=== PATIENT | female | born 1935 | race American Indian/Alaskan Native ===

== ENCOUNTER 2016-12-05 12:30 | Outpatient (CLI) | payer MEDICARE ==
--- NOTE | 2016-12-05 13:41 | XRay Report ---
ROUTINE CHEST, TWO VIEWS: HISTORY: Dyspnea. The trachea, heart, mediastinal contour, lung chew and bony thorax are unremarkable. Surgical changes in the left axilla and lateral right breast are noted. IMPRESSION: No acute cardiopulmonary process.
== END 2016-12-05 12:31 | disposition home or self-care (01) ==
LOC: XRAY 12:30
PROVIDERS: ATTEND Internal Medicine
DX: R06.00 Dyspnea, unspecified (principal)
CPT/HCPCS: 71020

== ENCOUNTER 2017-05-23 13:01 | Outpatient (CLI) | payer MEDICARE ==
--- NOTE | 2017-05-26 09:58 | XRay Report ---
PA and lateral chest: Pleural pain. Bilateral surgical clips are identified over the chest consistent with mastectomies. The aorta is tortuous. The heart is normal in size. The lungs are clear except for a small nodule in the right midlung. No vascular congestion. No bone abnormality. The findings appear essentially unchanged compared to prior exam on December 05, 2016. Impressions: 1. No acute cardiopulmonary findings. 2. Bilateral mastectomies.
== END 2017-05-23 13:02 | disposition home or self-care (01) ==
LOC: SPVIMAG 13:01
PROVIDERS: ATTEND Internal Medicine Hematology & Oncology
DX: R91.8 Other nonspecific abnormal finding of lung field (principal); R07.81 Pleurodynia; C50.411 Malignant neoplasm of upper-outer quadrant of right female breast; C50.412 Malignant neoplasm of upper-outer quadrant of left female breast; Z90.13 Acquired absence of bilateral breasts and nipples
CPT/HCPCS: 71020

== ENCOUNTER 2017-09-29 10:46 | Inpatient (IN) | payer MEDICARE ==
--- NOTE | 2017-09-29 14:21 | History and Physical Report ---
History of Present Illness Date of examination: 09/29/17 Chief complaint: Frequent falls History of present illness: 82-year-old -[place] female with past medical history significant for breast cancer status post mastectomy, hypertension, CHF, anxiety, COPD, recurrent pneumonia, ulcer is a direct admit is a direct admit from Dr. Soto' s office for suspected pyelonephritis. Patient stated she had recurrent falls for the last 2 weeks, her legs gave up and fall, no dizziness or palpitation before fall. Patient said she had abdominal and flank pain, dysuria, frequency and urgency but denied fever, chills. Patient said she had history of congestive heart failure and is complaining dyspnea, orthopnea, PND and leg swelling. She is also complaining dry cough. Patient has history of long- standing arthritis. REVIEW OF SYSTEMS: GENERAL: no weight change, no fatigue, no fever HEAD: no head ache EYES: no blurry vision, no acute visual loss EARS: no hearing loss, no discharge, no earache NOSE: no stuffiness, no sneezing, no discharge MOUTH, THROAT AND NECK: no bleeding gums, no sore throat, no swollen neck CARDIAC: + palpitations, + dyspnea on exertion, + orthopnea, + PND, + edema, no chest pain RESPIRATORY: + shortness of breath, no wheeze, + cough, no sputum, no hemoptysis GI: no decreased appetite, no nausea, no vomiting, no dysphagia, no diarrhea, no constipation, no abdominal pain URINARY: + change in frequency, + urgency, no polyuria, no hematuria, + incontinence MUSCULOSKELETAL: no muscle weakness, no pain, no joint stiffness NEUROLOGIC: no loss of sensation/numbness, no tingling, no tremors, no weakness/ paralysis HEMATOLOGIC: no anemia, no easy bruising SKIN: no rashes ENDOCRINE: no heat/cold intolerance, no polyuria, no polydipsia, no thyroid problems, no diabetes PSYCHIATRIC: no anxiety, no depression, no suicidal ideations Past History Past Medical History: cancer, COPD, heart failure, hypertension, hyperlipidemia Past Surgical History: mastectomy Social history: AND/DNR-allow natural . denies: smoking, alcohol abuse, prescription drug abuse, IV drug use, full code Family history: no significant family history Medications and Allergies Allergies Allergy/AdvReac Type Severity Reaction Status Date / Time No Known Allergies Allergy Unverified 06/29/15 10:20 Home Medications Medication Instructions Recorded Confirmed Last Taken Type ALPRAZolam [Xanax TAB] 0.5 mg PO TID PRN 07/12/15 09/29/17 07/19/15 04:30 History traMADol [Ultram] 50 mg PO Q8HR PRN 07/12/15 09/29/17 07/18/15 04:00 History Amlodipine Besylate [Norvasc] 10 mg PO DAILY 09/29/17 09/29/17 09/29/17 08:00 History Anastrozole (Nf) 1 mg PO DAILY 09/29/17 09/29/17 09/29/17 08:00 History Cholecalciferol (Vitamin D3) 50,000 units PO QWEEK 09/29/17 09/29/17 Unknown History HYDROcodone/APAP 5-325 [[place] 1 each PO Q8H PRN 09/29/17 09/29/17 09/29/17 08: 00 History 5/325] Lisinopril [Zestril] 20 mg PO DAILY 09/29/17 09/29/17 09/29/17 08:00 History Meloxicam [Mobic] 15 mg PO HS 09/29/17 09/29/17 09/28/17 21:00 History Omeprazole 20 mg PO DAILY 09/29/17 09/29/17 09/29/17 08:00 History 20 mg Torsemide [Demadex] 10 mg PO QDAY 09/29/17 09/29/17 09/29/17 08:00 History clonazePAM [ Klonopin] 1 mg PO Q8H PRN 09/29/17 09/29/17 Unknown History hydrALAZINE 50 mg PO DAILY 09/29/17 09/29/17 09/29/17 08:00 History Active Meds: Active Medications Heparin Sodium (Porcine) (Heparin) 5,000 unit SUB-Q Q8HR MYCHAL Exam - Physical Exam Narrative exam: Not in cardiopulmonary distress. The patient appeared well nourished and normally developed. Vital signs as documented. Head exam is unremarkable. No scleral icterus . Neck is without jugular venous distension, thyromegaly, or carotid bruits. Lungs are clear to auscultation. Cardiac exam reveals regular rate and Rhythm. First and second heart sounds normal. No murmurs, rubs or gallops. Abdominal exam reveals normal bowel sounds, no masses, no organomegaly and no aortic enlargement. Extremities are nonedematous and both femoral and pedal pulses are normal. SAND ANALYST: Alert and oriented 3. No focal weakness. Assessment and Plan Assessment and plan: Possible pyelonephritis - We will going to do U/A, urine culture, blood culture and CT abdomen and pelvis - Patient started on IV ceftriaxone Congestive heart failure, unspecified pending echo - Resume her home CHF medications - We will do echo, consult [facility] Hypertension - Resume medications Frequent falls - PT/OT Anxiety - We'll restart her home dose of alprazolam COPD - On Advair, DuoNeb and oxygen support History of breast cancer DVT prophylaxis - On heparin Disposition - Admit to MedSur floor. Advance Directives: Yes (DNR/ DNI) VTE prophylaxis?: Chemical Plan of care discussed with patient/family: Yes
[2017-09-29 17:11] LABS: Basophils % (Auto) 1.2 % (0.0-1.8); Eosinophils % (Auto) 2.5 % (0.0-4.3); Hematocrit 35.5 % (30.3-42.9); Hemoglobin 11.8 gm/dl (10.1-14.3); Mean Corpuscular HGB Conc 33 % (30-34); Mean Corpuscular Hemoglobin 30 pg (28-32); Mean Corpuscular Volume 91 fl (79-97); Platelet Count 182 K/mm3 (140-440); Red Blood Count 3.92 M/mm3 (3.65-5.03); Red Cell Distribution Width 15.9 % (13.2-15.2); White Blood Count 4.9 K/mm3 (4.5-11.0)
[2017-09-29 17:27] LABS: BUN/Creatinine Ratio 16; Blood Urea Nitrogen 13 mg/dL (7-17); Calcium 8.9 mg/dL (8.4-10.2); Carbon Dioxide 30 mmol/L (22-30); Glucose 93 mg/dL (65-100)
[2017-09-29 17:28] LABS: Anion Gap 18 mmol/L; Chloride 100.6 mmol/L (98-107); Potassium 3.4 mmol/L (3.6-5.0); Sodium 145 mmol/L (137-145)
[2017-09-29] MEDS: NORCO 5/325 PO PRN (17:29)
[2017-09-29] MEDS: XANAX PO PRN (17:29)
[2017-09-29 17:38] LABS: INR 0.99 (0.87-1.13)
[2017-09-29] MEDS: ROCEPHIN/NS 1 GM/50 ML 1 GM/50 ML BAG IV SCH (17:45)
[2017-09-29] MEDS: DUONEB *Not for PRN Use IH SCH (20:13)
[2017-09-29 20:20] LABS: Bilirubin,Urine NEG (Negative); Blood,Urine NEG (Negative); Ketones,Urine NEG (Negative); Leukocyte Esterase,Urine TR (Negative); Nitrite,Urine NEG (Negative); Protein,Urine <15 mg/dL mg/dL (Negative); Urobilinogen,Urine < 2.0 mg/dL (<2.0)
[2017-09-29] MEDS: ULTRAM PO PRN (22:41)
[2017-09-29] MEDS: GUAIFENESIN DM SYRUP PO PRN (22:42)
[2017-09-29] MEDS: HEPARIN SUB-Q SCH (22:42)
[2017-09-30] MEDS: XANAX PO PRN (03:51)
[2017-09-30] MEDS: NORCO 5/325 PO PRN ×2 (03:51→11:44)
[2017-09-30 05:10] LABS: Basophils % (Auto) 0.9 % (0.0-1.8); Eosinophils % (Auto) 3.1 % (0.0-4.3); Hematocrit 34.9 % (30.3-42.9); Hemoglobin 11.3 gm/dl (10.1-14.3); Mean Corpuscular HGB Conc 32 % (30-34); Mean Corpuscular Hemoglobin 30 pg (28-32); Mean Corpuscular Volume 92 fl (79-97); Platelet Count 166 K/mm3 (140-440); Red Blood Count 3.81 M/mm3 (3.65-5.03); Red Cell Distribution Width 15.9 % (13.2-15.2); White Blood Count 5.1 K/mm3 (4.5-11.0)
[2017-09-30 05:22] LABS: INR 1.01 (0.87-1.13)
[2017-09-30 05:30] LABS: Anion Gap 16 mmol/L; BUN/Creatinine Ratio 20; Blood Urea Nitrogen 14 mg/dL (7-17); Calcium 8.6 mg/dL (8.4-10.2); Carbon Dioxide 28 mmol/L (22-30); Chloride 103.8 mmol/L (98-107); Glucose 97 mg/dL (65-100); Potassium 3.3 mmol/L (3.6-5.0); Sodium 144 mmol/L (137-145)
[2017-09-30] MEDS: HEPARIN SUB-Q SCH ×3 (06:44→22:36)
--- NOTE | 2017-09-30 08:05 | XRay Report ---
Chest 2 views. History: Cough. Findings: The heart is borderline in size with normal pulmonary vascularity. There is uncoiling of the thoracic aorta. A granuloma in the right midlung zone is stable. The lungs are free of acute infiltrates. No pleural fluid is seen. Multiple surgical clips overlie the thorax. Impression: No acute findings.
--- NOTE | 2017-09-30 08:44 | Cat Scan Report ---
CT of the abdomen and pelvis without contrast. History: Abdominal pain. Findings: A calcified granuloma is noted in the left lower lobe. Minimal discoid atelectasis is seen in the left lower lobe. The liver, spleen, and gallbladder are unremarkable except for a few splenic granulomas. The pancreas is atrophic but otherwise unremarkable. The kidneys are normal in size and configuration with no evidence of mass or hydronephrosis. No renal stones are seen. Small lymph nodes are seen in the periaortic region. There are no pelvic masses or abnormal fluid collections. No mesenteric inflammation is seen. There is no radiographic evidence of appendicitis. Impression: No significant findings.
[2017-09-30] MEDS ORDERED: K-DUR PO NR (09:00)
[2017-09-30] MEDS: DUONEB *Not for PRN Use IH SCH ×4 (09:54→20:34)
[2017-09-30] MEDS ORDERED: DEMADEX PO SCH (10:00)
[2017-09-30] MEDS ORDERED: NON-FORMULARY (Hydralazine 50 MG) PO SCH (10:00)
[2017-09-30] MEDS ORDERED: NON-FORMULARY (Anastrozole (Nf) 1 MG) PO SCH (10:00)
[2017-09-30] MEDS ORDERED: NON-FORMULARY (Omeprazole [Omeprazole] 20 MG) PO SCH (10:00)
[2017-09-30] MEDS: ZESTRIL PO SCH (10:11)
[2017-09-30] MEDS: PROTONIX PO SCH (10:11)
[2017-09-30] MEDS: ROCEPHIN/NS 1 GM/50 ML 1 GM/50 ML BAG IV SCH (10:11)
[2017-09-30] MEDS: NORVASC PO SCH (10:12)
[2017-09-30] MEDS: APRESOLINE PO SCH (10:13)
[2017-09-30] MEDS: GUAIFENESIN DM SYRUP PO PRN (10:17)
--- NOTE | 2017-09-30 11:47 | Consultation ---
History of Present Illness Consult date: 09/30/17 Consult reason: congestive heart failure History of present illness: This is an 82yr old woman who was admitted from the outpatient setting for suspected pyelonephritis. A cardiac consultation was requested for CHF evaluation. Patient complains of intermittent coughs. There is no reports of shortness of breath. A chest x-ray reports no acute cardiopulmonary process. In addition, patient reports generalized weakness and dizziness resulting in frequent falls over the last few days. Patient denies loss of consciousness. She denies chest pain. Past History Past Medical History: cancer, COPD, heart failure, hypertension, hyperlipidemia Past Surgical History: mastectomy Social history: AND/DNR-allow natural . denies: smoking, alcohol abuse, prescription drug abuse, IV drug use, full code Family history: no significant family history Medications and Allergies Allergies Allergy/AdvReac Type Severity Reaction Status Date / Time No Known Allergies Allergy Unverified 06/29/15 10:20 Home Medications Medication Instructions Recorded Confirmed Last Taken Type ALPRAZolam [Xanax TAB] 0.5 mg PO TID PRN 07/12/15 09/29/17 07/19/15 04:30 History traMADol [Ultram] 50 mg PO Q8HR PRN 07/12/15 09/29/17 07/18/15 04:00 History Amlodipine Besylate [Norvasc] 10 mg PO DAILY 09/29/17 09/29/17 09/29/17 08:00 History Anastrozole (Nf) 1 mg PO DAILY 09/29/17 09/29/17 09/29/17 08:00 History Cholecalciferol (Vitamin D3) 50,000 units PO QWEEK 09/29/17 09/29/17 Unknown History HYDROcodone/APAP 5-325 [[place] 1 each PO Q8H PRN 09/29/17 09/29/17 09/29/17 08: 00 History 5/325] Lisinopril [Zestril] 20 mg PO DAILY 09/29/17 09/29/17 09/29/17 08:00 History Meloxicam [Mobic] 15 mg PO HS 09/29/17 09/29/17 09/28/17 21:00 History Omeprazole 20 mg PO DAILY 09/29/17 09/29/17 09/29/17 08:00 History 20 mg Torsemide [Demadex] 10 mg PO QDAY 09/29/17 09/29/17 09/29/17 08:00 History clonazePAM [ Klonopin] 1 mg PO Q8H PRN 09/29/17 09/29/17 Unknown History hydrALAZINE 50 mg PO DAILY 09/29/17 09/29/17 09/29/17 08:00 History Active Meds: Active Medications Acetaminophen/Hydrocodone Bitart ([place] 5/325) 1 each PO Q8H PRN PRN Reason: Pain Last Admin: 09/30/17 03:51 Dose: 1 each Albuterol/Ipratropium (Duoneb *Not For Prn Use*) 1 ampul IH QIDRT [facility] Last Admin: 09/30/17 09:54 Dose: 1 ampul Alprazolam (Xanax) 1 mg PO TID PRN PRN Reason: Anxiety Last Admin: 09/30/17 03:51 Dose: 1 mg Amlodipine Besylate (Norvasc) 10 mg PO DAILY [facility] Last Admin: 09/30/17 10:12 Dose: 10 mg Ergocalciferol (Vitamin D2) 50,000 unit PO Mo MYCHAL Guaifenesin (Guaifenesin Dm Syrup) 20 ml PO Q4H PRN PRN Reason: Cough Last Admin: 09/30/17 10:17 Dose: 20 ml Heparin Sodium (Porcine) (Heparin) 5,000 unit SUB-Q Q8HR [facility] Last Admin: 09/30/17 06:44 Dose: 5,000 unit Hydralazine HCl (Apresoline) 50 mg PO DAILY [facility] Last Admin: 09/30/17 10:13 Dose: 50 mg Ceftriaxone Sodium (Rocephin/Ns 1 Gm/50 Ml) 1 gm in 50 mls @ 100 mls/hr IV Q24HR [facility] PRN Reason: Protocol Last Admin: 09/30/17 10:11 Dose: 100 mls/hr Influenza Virus Vaccine Quadrival (Fluarix Quad [id number](36 Mos+) 0.5 ml IM .ONCE ONE Stop: 09/30/17 12:01 Lisinopril (Zestril) 20 mg PO DAILY [facility] Last Admin: 09/30/17 10:11 Dose: 20 mg Miscellaneous Medication (Anastrozole (Nf)) 1 mg PO DAILY [facility] Pantoprazole Sodium (Protonix) 20 mg PO QDAY [facility] Last Admin: 09/30/17 10:11 Dose: 20 mg Potassium Chloride (K-Dur) 40 meq PO ONCE NR Stop: 09/30/17 12:00 Torsemide (Demadex) 10 mg PO QDAY [facility] Last Admin: 09/30/17 10:12 Dose: 10 mg Tramadol HCl (Ultram) 50 mg PO Q8HR PRN PRN Reason: Pain Last Admin: 09/29/17 22:41 Dose: 50 mg Physical Examination Vital Signs Resp 20 09/29/17 03:50 General appearance: no acute distress Results 09/30/17 03:55 09/30/17 03:55 Coagulation 09/29/17 09/30/17 Range/Units 16:45 03:55 PT 13.6 13.8 (12.2-14.9) Sec. INR 0.99 1.01 (0.87-1.13) CBC 09/29/17 09/30/17 Range/Units 16:35 03:55 WBC 4.9 5.1 (4.5-11.0) K/mm3 RBC 3.92 3.81 (3.65-5.03) M/mm3 Hgb 11.8 11.3 (10.1-14.3) gm/dl Hct 35.5 34.9 (30.3-42.9) % Plt Count 182 166 (140-440) K/mm3 Lymph # 1.9 2.4 (1.2-5.4) K/mm3 [place] # 0.6 0.6 (0.0-0.8) K/mm3 Eos # 0.1 0.2 (0.0-0.4) K/mm3 Baso # 0.1 0.0 (0.0-0.1) K/mm3 Comprehensive Metabolic Panel 09/29/17 09/30/17 Range/Units 16:35 03:55 Sodium 145 144 (137-145) mmol/L Potassium 3.4 L 3.3 L (3.6-5.0) mmol/L Chloride 100.6 103.8 (98-107) mmol/L Carbon Dioxide 30 28 (22-30) mmol/L BUN 13 14 (7-17) mg/dL Creatinine 0.8 0.7 (0.7-1.2) mg/dL Glucose 93 97 (65-100) mg/dL Calcium 8.9 8.6 (8.4-10.2) mg/dL
[2017-09-30] MEDS ORDERED: Fluarix Quad 2017-2018(36 MOS+ IM ONE (12:00)
--- NOTE | 2017-09-30 14:18 | Discharge Summary ---
Providers - Providers Date of Admission: 09/29/17 14:29 Date of discharge: 09/30/17 Attending physician: NANCY KEARNEY MD 09/29/17 17:04 Physical Therapy Evaluation and Treat [CONS] Routine Comment: Reason For Exam: Frequent fall 09/30/17 11:07 Consult to Physician [CONS] Routine Consulting Provider: ALEJANDRO KAYE Reason For Exam: CHF Place consult to:: Sarah Notified:: ELIZABETH LYMAN Was contact made?: Yes Primary care physician: JACKIE DUMONT Hospitalization Reason for admission: Frequent falls Disposition: [id number] HOME UNDER HOME [facility] Time spent for discharge: 31 minutes - Discharge Diagnoses (1) Frequent falls Status: Acute Core Measure Documentation - Palliative Care Palliative Care/ Comfort Measures: Not Applicable - Core Measures Any of the following diagnoses?: none Exam - Physical Exam Narrative exam: Not in cardiopulmonary distress. The patient appeared well nourished and normally developed. Vital signs as documented. Head exam is unremarkable. No scleral icterus . Neck is without jugular venous distension, thyromegaly, or carotid bruits. Lungs are clear to auscultation. Cardiac exam reveals regular rate and Rhythm. First and second heart sounds normal. No murmurs, rubs or gallops. Abdominal exam reveals normal bowel sounds, no masses, no organomegaly and no aortic enlargement. Extremities are nonedematous and both femoral and pedal pulses are normal. KENO DEALER: Alert and oriented 3. No focal weakness. - Constitutional Vitals: Temp Pulse Resp BP Pulse Ox 97.7 F 78 16 135/77 98 09/30/17 07:17 09/30/17 14:07 09/30/17 14:07 09/30/17 10:13 09/30/17 07:17 Plan Activity: no restrictions Weight Bearing Status: Full Weight Bearing Diet: low cholesterol Follow up with: JACKIE DUMONT MD [Primary Care Provider] - 7 Days
--- NOTE | 2017-09-30 18:11 | Magnetic Resonance Report ---
FINAL REPORT PROCEDURE: MR BRAIN WO CON TECHNIQUE: Magnetic resonance imaging of the brain was performed without contrast material. HISTORY: frequent fall COMPARISON: No prior studies are available for comparison. FINDINGS: Cerebellar tonsils are normally positioned. Cerebral ventricles are normal in size. No areas of restricted diffusion are seen in the brain. Mild chronic small vessel ischemic changes are seen in the periventricular white matter. In the posterior aspect of the sella there is 7.4 x 5.7 millimeter structure that has high T2 signal on FLAIR sequence and low T1 signal on T1 weighted series. The appear slightly eccentric to the right of midline and may extends slightly suprasellar. 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 Further evaluation with MRI of the pituitary gland with and without IV contrast is recommended to assure no solid component to this lesion. There is no mass effect upon the optic chiasm. No intracranial hemorrhage is seen. Paranasal sinuses and mastoid air cells appear clear of fluid. 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 There tortuosity of the right vertebral artery and basilar artery. Basilar artery appears be high-riding with suspicion for mass effect upon the left optic radiation. IMPRESSION: Mild chronic small vessel ischemic changes are seen without evidence of acute CVA. 7.4 x 5.7 millimeter structure in the posterior aspect of the sella is probably a cyst, but confirmation with MRI of the pituitary gland with and without IV contrast is recommended.
--- NOTE | 2017-09-30 18:55 | Progress Note ---
Assessment and Plan Assessment and plan: Recurrent fall - PT/OT evaluated and recommended home physical therapy - MRI showed chronic ischemic changes, cyst on the posterior aspect of the sella and recommended by radiologist to do MRI with and without contrast for further evaluation - Neurology consulted Given the patient was on home torsemide and shortness of breath, cough cardiology was consulted for diastolic CHF - Echo showed normal ejection fraction, diastolic dysfunction, recommended stress test tomorrow Anxiety - We'll restart her home dose of alprazolam COPD - On Advair, DuoNeb and oxygen support History of breast cancer DVT prophylaxis - On heparin Disposition -We'll discharge her to cardiology finished their workup. - Patient Problems (1) Frequent falls Current Visit: Yes Status: Acute History Interval history: Patient was seen and evaluated this morning, patient complains of mild abdominal pain otherwise she is doing well. Hospitalist Physical - Physical exam Narrative exam: Not in cardiopulmonary distress. The patient appeared well nourished and normally developed. Vital signs as documented. Head exam is unremarkable. No scleral icterus . Neck is without jugular venous distension, thyromegaly, or carotid bruits. Lungs are clear to auscultation. Cardiac exam reveals regular rate and Rhythm. First and second heart sounds normal. No murmurs, rubs or gallops. Abdominal exam reveals normal bowel sounds, no masses, no organomegaly and no aortic enlargement. Extremities are nonedematous and both femoral and pedal pulses are normal. MICROFILM OPERATOR: Alert and oriented 3. No focal weakness. - Constitutional Vitals: Temp Pulse Resp BP Pulse Ox 97.4 F L 69 20 117/63 96 09/30/17 15:38 09/30/17 15:38 09/30/17 15:38 09/30/17 15:38 09/30/17 15:38 General appearance: Present: no acute distress Results - Labs CBC & Chem 7: 09/30/17 03:55 09/30/17 03:55 Labs: Laboratory Last Values WBC 5.1 K/mm3 (4.5-11.0) 09/30/17 03:55 RBC 3.81 M/mm3 (3.65-5.03) 09/30/17 03:55 Hgb 11.3 gm/dl (10.1-14.3) 09/30/17 03:55 Hct 34.9 % (30.3-42.9) 09/30/17 03:55 MCV 92 fl (79-97) 09/30/17 03:55 MCH 30 pg (28-32) 09/30/17 03:55 MCHC 32 % (30-34) 09/30/17 03:55 RDW 15.9 % (13.2-15.2) H 09/30/17 03:55 Plt Count 166 K/mm3 (140-440) 09/30/17 03:55 Lymph % (Auto) 46.8 % (13.4-35.0) H 09/30/17 03:55 [place] % (Auto) 11.1 % (0.0-7.3) H 09/30/17 03:55 Eos % (Auto) 3.1 % (0.0-4.3) 09/30/17 03:55 Baso % (Auto) 0.9 % (0.0-1.8) 09/30/17 03:55 Lymph # 2.4 K/mm3 (1.2-5.4) 09/30/17 03:55 [place] # 0.6 K/mm3 (0.0-0.8) 09/30/17 03:55 Eos # 0.2 K/mm3 (0.0-0.4) 09/30/17 03:55 Baso # 0.0 K/mm3 (0.0-0.1) 09/30/17 03:55 Seg Neutrophils % 38.1 % (40.0-70.0) L 09/30/17 03:55 Seg Neutrophils # 1.9 K/mm3 (1.8-7.7) 09/30/17 03:55 PT 13.8 Sec. (12.2-14.9) 09/30/17 03:55 INR 1.01 (0.87-1.13) 09/30/17 03:55 Sodium 144 mmol/L (137-145) 09/30/17 03:55 Potassium 3.3 mmol/L (3.6-5.0) L 09/30/17 03:55 Chloride 103.8 mmol/L (98-107) 09/30/17 03:55 Carbon Dioxide 28 mmol/L (22-30) 09/30/17 03:55 Anion Gap 16 mmol/L 09/30/17 03:55 BUN 14 mg/dL (7-17) 09/30/17 03:55 Creatinine 0.7 mg/dL (0.7-1.2) 09/30/17 03:55 Estimated GFR > 60 ml/min 09/30/17 03:55 BUN/Creatinine Ratio 20 % 09/30/17 03:55 Glucose 97 mg/dL (65-100) 09/30/17 03:55 POC Glucose 111 (70-105) H 09/30/17 17:49 Lactic Acid 1.40 mmol/L (0.7-2.0) 09/29/17 16:42 Calcium 8.6 mg/dL (8.4-10.2) 09/30/17 03:55 Magnesium 1.90 mg/dL (1.7-2.3) 09/29/17 16:35 Urine Color Yellow (Yellow) 09/29/17 Unknown Urine Turbidity Clear (Clear) 09/29/17 Unknown Urine pH 6.0 (5.0-7.0) 09/29/17 Unknown Ur Specific [place] 1.017 (1.003-1.030) 09/29/17 Unknown Urine Protein <15 mg/dl mg/dL (Negative) 09/29/17 Unknown Urine Glucose (UA) Neg mg/dL (Negative) 09/29/17 Unknown Urine Ketones Neg mg/dL (Negative) 09/29/17 Unknown Urine Blood Neg (Negative) 09/29/17 Unknown Urine Nitrite Neg (Negative) 09/29/17 Unknown Urine Bilirubin Neg (Negative) 09/29/17 Unknown Urine Urobilinogen < 2.0 mg/dL (<2.0) 09/29/17 Unknown Ur Leukocyte Esterase Tr (Negative) 09/29/17 Unknown Urine WBC (Auto) 6.0 /HPF (0.0-6.0) 09/29/17 Unknown Urine RBC (Auto) 2.0 /HPF (0.0-6.0) 09/29/17 Unknown U Epithel Cells (Auto) 1.0 /HPF (0-13.0) 09/29/17 Unknown
[2017-09-30] MEDS: MIRALAX 3350 PO PRN (22:35)
[2017-09-30] MEDS: ULTRAM PO PRN (22:35)
[2017-10-01 05:46] LABS: Anion Gap 15 mmol/L; BUN/Creatinine Ratio 24; Blood Urea Nitrogen 17 mg/dL (7-17); Calcium 8.6 mg/dL (8.4-10.2); Carbon Dioxide 27 mmol/L (22-30); Chloride 101.6 mmol/L (98-107); Glucose 94 mg/dL (65-100); Potassium 3.4 mmol/L (3.6-5.0); Sodium 140 mmol/L (137-145)
[2017-10-01] MEDS: HEPARIN SUB-Q SCH ×3 (06:34→21:23)
[2017-10-01] MEDS: MIRALAX 3350 PO PRN (06:34)
[2017-10-01] MEDS: NORCO 5/325 PO PRN (06:35)
--- NOTE | 2017-10-01 08:31 | Consultation ---
History of Present Illness Consult date: 10/01/17 History of present illness: reviewed the note about getting MRI of the pituitary with contrast this is reasonable I will review the films rec check cortisol level thanks for consult on this issue Past History Past Medical History: cancer, COPD, heart failure, hypertension, hyperlipidemia Past Surgical History: mastectomy Social history: AND/DNR-allow natural . denies: smoking, alcohol abuse, prescription drug abuse, IV drug use, full code Family history: no significant family history Medications and Allergies Allergies Allergy/AdvReac Type Severity Reaction Status Date / Time No Known Allergies Allergy Unverified 06/29/15 10:20 Home Medications Medication Instructions Recorded Confirmed Last Taken Type ALPRAZolam [Xanax TAB] 0.5 mg PO TID PRN 07/12/15 09/29/17 07/19/15 04:30 History traMADol [Ultram 50 MG tab] 50 mg PO Q8HR PRN 07/12/15 09/29/17 07/18/15 04:00 History Amlodipine Besylate [Norvasc] 10 mg PO DAILY 09/29/17 09/29/17 09/29/17 08:00 History Anastrozole (Nf) 1 mg PO DAILY 09/29/17 09/29/17 09/29/17 08:00 History Cholecalciferol (Vitamin D3) 50,000 units PO QWEEK 09/29/17 09/29/17 Unknown History HYDROcodone/APAP 5-325 [[place] 1 each PO Q8H PRN 09/29/17 09/29/17 09/29/17 08: 00 History 5-325 mg TAB] Lisinopril [Zestril] 20 mg PO DAILY 09/29/17 09/29/17 09/29/17 08:00 History Meloxicam [Mobic] 15 mg PO HS 09/29/17 09/29/17 09/28/17 21:00 History Omeprazole 20 mg PO DAILY 09/29/17 09/29/17 09/29/17 08:00 History 20 mg Torsemide [Demadex] 10 mg PO QDAY 09/29/17 09/29/17 09/29/17 08:00 History clonazePAM [KlonoPIN] 1 mg PO Q8H PRN 09/29/17 09/29/17 Unknown History hydrALAZINE 50 mg PO DAILY 09/29/17 09/29/17 09/29/17 08:00 History Active Meds: Active Medications Acetaminophen/Hydrocodone Bitart ([place] 5/325) 1 each PO Q8H PRN PRN Reason: Pain Last Admin: 10/01/17 06:35 Dose: 1 each Albuterol/Ipratropium (Duoneb *Not For Prn Use*) 1 ampul IH QIDRT [facility] Last Admin: 09/30/17 20:34 Dose: 1 ampul Alprazolam (Xanax) 1 mg PO TID PRN PRN Reason: Anxiety Last Admin: 09/30/17 03:51 Dose: 1 mg Amlodipine Besylate (Norvasc) 10 mg PO DAILY [facility] Last Admin: 09/30/17 10:12 Dose: 10 mg Anastrozole (Arimidex (Nf)) 1 mg PO DAILY [facility] Ergocalciferol (Vitamin D2) 50,000 unit PO Mo [facility] Guaifenesin (Guaifenesin Dm Syrup) 20 ml PO Q4H PRN PRN Reason: Cough Last Admin: 09/30/17 10:17 Dose: 20 ml Heparin Sodium (Porcine) (Heparin) 5,000 unit SUB-Q Q8HR [facility] Last Admin: 10/01/17 06:34 Dose: 5,000 unit Hydralazine HCl (Apresoline) 50 mg PO DAILY [facility] Last Admin: 09/30/17 10:13 Dose: 50 mg Lisinopril (Zestril) 20 mg PO DAILY [facility] Last Admin: 09/30/17 10:11 Dose: 20 mg Pantoprazole Sodium (Protonix) 20 mg PO QDAY [facility] Last Admin: 09/30/17 10:11 Dose: 20 mg Polyethylene Glycol (Miralax 3350) 17 gm PO BID PRN PRN Reason: Constipation Last Admin: 10/01/17 06:34 Dose: 17 gm Tramadol HCl (Ultram) 50 mg PO Q8HR PRN PRN Reason: Pain Last Admin: 09/30/17 22:35 Dose: 50 mg Physical Examination - Vital Signs Vital Signs: Vital Signs Resp 20 09/29/17 03:50 Results - Laboratory Findings CBC and BMP: 09/30/17 03:55 10/01/17 04:08 Abnormal Lab Findings: Abnormal Labs 09/29/17 09/29/1717 16:35 16:35 03:55 RDW 15.9 H 15.9 H Lymph % (Auto) 39.2 H 46.8 H [place] % (Auto) 11.8 H 11.1 H Seg Neutrophils % 38.1 L Potassium 3.4 L POC Glucose 09/30/17 09/30/17 10/01/17 03:55 17:49 04:08 RDW Lymph % (Auto) [place] % (Auto) Seg Neutrophils % Potassium 3.3 L 3.4 L POC Glucose 111 H
[2017-10-01] MEDS: ULTRAM PO PRN ×2 (08:32→21:21)
[2017-10-01] MEDS: DUONEB *Not for PRN Use IH SCH ×4 (10:14→20:42)
--- NOTE | 2017-10-01 10:40 | Progress Note ---
Assessment and Plan Hx of COPD Hypertension Recurrent falls pt denies syncope or loss of consciousness Chest pain, musculoskeletal pain associated with coughing Echocardiogram reports well preserved left ventricular systolic function, ejection fraction 55-60%. Plan: Continue telemetry monitoring. Predischarge persantine thallium stress test tomorrow morning. Subjective Date of service: 10/01/17 Interval history: No cardiac events reported. Objective Vital Signs Temp Pulse Pulse Pulse Resp Resp Resp 10/01/17 10:00 67 10/01/17 07:50 98.5 F 61 20 10/01/17 06:35 20 10/01/17 05:14 97.3 F L 63 18 09/30/17 23:35 16 09/30/17 22:35 16 16 09/30/17 22:00 18 09/30/17 20:43 93 H 16 09/30/17 20:34 91 H 16 09/30/17 19:34 97.5 F L 76 18 09/30/17 15:38 97.4 F L 69 20 09/30/17 14:07 78 16 09/30/17 14:05 78 16 09/30/17 13:55 80 16 Resp Resp BP Pulse Ox 10/01/17 10:00 16 10/01/17 07:50 148/96 97 10/01/17 06:35 10/01/17 05:14 134/80 97 09/30/17 23:35 09/30/17 22:35 16 09/30/17 22:00 98 09/30/17 20:43 09/30/17 20:34 09/30/17 19:34 139/94 98 09/30/17 15:38 117/63 96 09/30/17 14:07 09/30/17 14:05 09/30/17 13:55 - Physical Examination General: No Apparent Distress HEENT: Positive: PERRL Cardiac: Positive: Reg Rate and Rhythm - Labs and Meds Comprehensive Metabolic Panel 10/01/17 Range/Units 04:08 Sodium 140 (137-145) mmol/L Potassium 3.4 L (3.6-5.0) mmol/L Chloride 101.6 (98-107) mmol/L Carbon Dioxide 27 (22-30) mmol/L BUN 17 (7-17) mg/dL Creatinine 0.7 (0.7-1.2) mg/dL Glucose 94 (65-100) mg/dL Calcium 8.6 (8.4-10.2) mg/dL
[2017-10-01] MEDS: ZESTRIL PO SCH (11:39)
[2017-10-01] MEDS: PROTONIX PO SCH (11:40)
[2017-10-01] MEDS: NORVASC PO SCH (11:40)
[2017-10-01] MEDS: APRESOLINE PO SCH (11:40)
[2017-10-01] MEDS ORDERED: ROCEPHIN/NS 1 GM/50 ML 1 GM/50 ML BAG IV SCH (13:00)
[2017-10-01] MEDS ORDERED: CITRATE OF MAGNESIA PO PRN (13:00)
--- NOTE | 2017-10-01 14:21 | Progress Note ---
Assessment and Plan Assessment and plan: Recurrent fall - PT/OT evaluated and recommended home physical therapy - MRI showed chronic ischemic changes, cyst on the posterior aspect of the sella and recommended by radiologist to do MRI with and without contrast for further evaluation, pending - Neurology consult appreciated Given the patient was on home torsemide and shortness of breath, cough cardiology was consulted for diastolic CHF - Echo showed normal ejection fraction, diastolic dysfunction, recommended stress test tomorrow UTI - Urine culture is positive for strep - Patient is on IV ceftriaxone Anxiety - We'll restart her home dose of alprazolam COPD - On Advair, DuoNeb and oxygen support History of breast cancer DVT prophylaxis - On heparin Disposition -Possible discharge tomorrow after stress test is done. - Patient Problems (1) Frequent falls Current Visit: Yes Status: Acute History Interval history: Patient was seen and evaluated this morning, patient didn't have any complaints. Hospitalist Physical - Physical exam Narrative exam: Not in cardiopulmonary distress. The patient appeared well nourished and normally developed. Vital signs as documented. Head exam is unremarkable. No scleral icterus . Neck is without jugular venous distension, thyromegaly, or carotid bruits. Lungs are clear to auscultation. Cardiac exam reveals regular rate and Rhythm. First and second heart sounds normal. No murmurs, rubs or gallops. Abdominal exam reveals normal bowel sounds, no masses, no organomegaly and no aortic enlargement. Extremities are nonedematous and both femoral and pedal pulses are normal. 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 No focal weakness. - Constitutional Vitals: Temp Pulse Resp BP Pulse Ox 98.5 F 67 16 148/96 98 10/01/17 07:50 10/01/17 10:00 10/01/17 10:00 10/01/17 11:40 10/01/17 12:55 General appearance: Present: no acute distress Results - Labs CBC & Chem 7: 09/30/17 03:55 10/01/17 04:08 Labs: Laboratory Last Values WBC 5.1 K/mm3 (4.5-11.0) 09/30/17 03:55 RBC 3.81 M/mm3 (3.65-5.03) 09/30/17 03:55 Hgb 11.3 gm/dl (10.1-14.3) 09/30/17 03:55 Hct 34.9 % (30.3-42.9) 09/30/17 03:55 MCV 92 fl (79-97) 09/30/17 03:55 MCH 30 pg (28-32) 09/30/17 03:55 MCHC 32 % (30-34) 09/30/17 03:55 RDW 15.9 % (13.2-15.2) H 09/30/17 03:55 Plt Count 166 K/mm3 (140-440) 09/30/17 03:55 Lymph % (Auto) 46.8 % (13.4-35.0) H 09/30/17 03:55 [place] % (Auto) 11.1 % (0.0-7.3) H 09/30/17 03:55 Eos % (Auto) 3.1 % (0.0-4.3) 09/30/17 03:55 Baso % (Auto) 0.9 % (0.0-1.8) 09/30/17 03:55 Lymph # 2.4 K/mm3 (1.2-5.4) 09/30/17 03:55 [place] # 0.6 K/mm3 (0.0-0.8) 09/30/17 03:55 Eos # 0.2 K/mm3 (0.0-0.4) 09/30/17 03:55 Baso # 0.0 K/mm3 (0.0-0.1) 09/30/17 03:55 Seg Neutrophils % 38.1 % (40.0-70.0) L 09/30/17 03:55 Seg Neutrophils # 1.9 K/mm3 (1.8-7.7) 09/30/17 03:55 PT 13.8 Sec. (12.2-14.9) 09/30/17 03:55 INR 1.01 (0.87-1.13) 09/30/17 03:55 Sodium 140 mmol/L (137-145) 10/01/17 04:08 Potassium 3.4 mmol/L (3.6-5.0) L 10/01/17 04:08 Chloride 101.6 mmol/L (98-107) 10/01/17 04:08 Carbon Dioxide 27 mmol/L (22-30) 10/01/17 04:08 Anion Gap 15 mmol/L 10/01/17 04:08 BUN 17 mg/dL (7-17) 10/01/17 04:08 Creatinine 0.7 mg/dL (0.7-1.2) 10/01/17 04:08 Estimated GFR > 60 ml/min 10/01/17 04:08 BUN/Creatinine Ratio 24 % 10/01/17 04:08 Glucose 94 mg/dL (65-100) 10/01/17 04:08 POC Glucose 98 (70-105) 10/01/17 12:15 Lactic Acid 1.40 mmol/L (0.7-2.0) 09/29/17 16:42 Calcium 8.6 mg/dL (8.4-10.2) 10/01/17 04:08 Magnesium 1.90 mg/dL (1.7-2.3) 09/29/17 16:35 Urine Color Yellow (Yellow) 09/29/17 Unknown Urine Turbidity Clear (Clear) 09/29/17 Unknown Urine pH 6.0 (5.0-7.0) 09/29/17 Unknown Ur Specific [place] 1.017 (1.003-1.030) 09/29/17 Unknown Urine Protein <15 mg/dl mg/dL (Negative) 09/29/17 Unknown Urine Glucose (UA) Neg mg/dL (Negative) 09/29/17 Unknown Urine Ketones Neg mg/dL (Negative) 09/29/17 Unknown Urine Blood Neg (Negative) 09/29/17 Unknown Urine Nitrite Neg (Negative) 09/29/17 Unknown Urine Bilirubin Neg (Negative) 09/29/17 Unknown Urine Urobilinogen < 2.0 mg/dL (<2.0) 09/29/17 Unknown Ur Leukocyte Esterase Tr (Negative) 09/29/17 Unknown Urine WBC (Auto) 6.0 /HPF (0.0-6.0) 09/29/17 Unknown Urine RBC (Auto) 2.0 /HPF (0.0-6.0) 09/29/17 Unknown U Epithel Cells (Auto) 1.0 /HPF (0-13.0) 09/29/17 Unknown Hypokalemia
[2017-10-01] MEDS: ARIMIDEX (NF) PO SCH (16:02)
[2017-10-01] MEDS: cefTRIAXone 1 GM in NACL 0.9% 20 ML IV SCH (16:03)
[2017-10-01] MEDS: XANAX PO PRN (21:22)
[2017-10-02] MEDS: HEPARIN SUB-Q SCH ×2 (05:24→22:43)
[2017-10-02] MEDS: ULTRAM PO PRN ×2 (06:11→13:33)
[2017-10-02] MEDS: XANAX PO PRN (06:14)
--- NOTE | 2017-10-02 08:19 | Consultation ---
History of Present Illness Consult date: 10/02/17 History of present illness: spoke with Dr. Dwyer in radiology about the contrst MRI scan of the pituitary and I did enter order in the system... neurologically major issue is the right leg weakness and falls doubt this is stroke related or TIA suspect neuropathic Past History Past Medical History: cancer, COPD, heart failure, hypertension, hyperlipidemia Past Surgical History: mastectomy Social history: AND/DNR-allow natural . denies: smoking, alcohol abuse, prescription drug abuse, IV drug use, full code Family history: no significant family history Medications and Allergies Allergies Allergy/AdvReac Type Severity Reaction Status Date / Time No Known Allergies Allergy Unverified 06/29/15 10:20 Home Medications Medication Instructions Recorded Confirmed Last Taken Type ALPRAZolam [Xanax TAB] 0.5 mg PO TID PRN 07/12/15 09/29/17 07/19/15 04:30 History traMADol [Ultram 50 MG tab] 50 mg PO Q8HR PRN 07/12/15 09/29/17 07/18/15 04:00 History Amlodipine Besylate [Norvasc] 10 mg PO DAILY 09/29/17 09/29/17 09/29/17 08:00 History Anastrozole (Nf) 1 mg PO DAILY 09/29/17 09/29/17 09/29/17 08:00 History Cholecalciferol (Vitamin D3) 50,000 units PO QWEEK 09/29/17 09/29/17 Unknown History HYDROcodone/APAP 5-325 [[place] 1 each PO Q8H PRN 09/29/17 09/29/17 09/29/17 08: 00 History 5-325 mg TAB] Lisinopril [Zestril] 20 mg PO DAILY 09/29/17 09/29/17 09/29/17 08:00 History Meloxicam [Mobic] 15 mg PO HS 09/29/17 09/29/17 09/28/17 21:00 History Omeprazole 20 mg PO DAILY 09/29/17 09/29/17 09/29/17 08:00 History 20 mg Torsemide [Demadex] 10 mg PO QDAY 09/29/17 09/29/17 09/29/17 08:00 History clonazePAM [KlonoPIN] 1 mg PO Q8H PRN 09/29/17 09/29/17 Unknown History hydrALAZINE 50 mg PO DAILY 09/29/17 09/29/17 09/29/17 08:00 History Active Meds: Active Medications Acetaminophen/Hydrocodone Bitart ([place] 5/325) 1 each PO Q8H PRN PRN Reason: Pain Last Admin: 10/01/17 06:35 Dose: 1 each Albuterol/Ipratropium (Duoneb *Not For Prn Use*) 1 ampul IH TIDRT [facility] Last Admin: 10/01/17 20:42 Dose: 1 ampul Alprazolam (Xanax) 1 mg PO TID PRN PRN Reason: Anxiety Last Admin: 10/02/17 06:14 Dose: 1 mg Amlodipine Besylate (Norvasc) 10 mg PO DAILY [facility] Last Admin: 10/01/17 11:40 Dose: 10 mg Anastrozole (Arimidex (Nf)) 1 mg PO DAILY [facility] Last Admin: 10/01/17 16:02 Dose: 1 mg Ergocalciferol (Vitamin D2) 50,000 unit PO Mo [facility] Guaifenesin (Guaifenesin Dm Syrup) 20 ml PO Q4H PRN PRN Reason: Cough Last Admin: 09/30/17 10:17 Dose: 20 ml Heparin Sodium (Porcine) (Heparin) 5,000 unit SUB-Q Q8HR [facility] Last Admin: 10/02/17 05:24 Dose: 5,000 unit Hydralazine HCl (Apresoline) 50 mg PO DAILY [facility] Last Admin: 10/01/17 11:40 Dose: 50 mg Ceftriaxone Sodium 1 gm/ (Sodium Chloride) 20 mls @ 20 mls/10 min IV Q24HR [facility] Last Admin: 10/01/17 16:03 Dose: 20 mls/10 min Lisinopril (Zestril) 20 mg PO DAILY [facility] Last Admin: 10/01/17 11:39 Dose: 20 mg Magnesium Citrate (Citrate Of Magnesia) 300 ml PO QDAY PRN PRN Reason: Bowel Movement Last Admin: 10/01/17 22:30 Dose: 300 ml Pantoprazole Sodium (Protonix) 20 mg PO QDAY [facility] Last Admin: 10/01/17 11:40 Dose: 20 mg Polyethylene Glycol (Miralax 3350) 17 gm PO BID PRN PRN Reason: Constipation Last Admin: 10/01/17 06:34 Dose: 17 gm Tramadol HCl (Ultram) 50 mg PO Q8HR PRN PRN Reason: Pain Last Admin: 10/02/17 06:11 Dose: 50 mg Physical Examination - Vital Signs Vital Signs: Vital Signs Resp 20 09/29/17 03:50 Results - Laboratory Findings CBC and BMP: 09/30/17 03:55 10/01/17 04:08 Abnormal Lab Findings: Abnormal Labs 09/29/17 09/29/17 09/30/17 16:35 16:35 03:55 RDW 15.9 H 15.9 H Lymph % (Auto) 39.2 H 46.8 H [place] % (Auto) 11.8 H 11.1 H Seg Neutrophils % 38.1 L Potassium 3.4 L POC Glucose 09/30/17 09/30/17 10/01/17 03:55 17:49 04:08 RDW Lymph % (Auto) [place] % (Auto) Seg Neutrophils % Potassium 3.3 L 3.4 L POC Glucose 111 H 10/01/17 17:01 RDW Lymph % (Auto) [place] % (Auto) Seg Neutrophils % Potassium POC Glucose 123 H
[2017-10-02] MEDS: DUONEB *Not for PRN Use IH SCH ×3 (09:49→21:01)
[2017-10-02] MEDS: cefTRIAXone 1 GM in NACL 0.9% 20 ML IV SCH (11:24)
[2017-10-02] MEDS: NORVASC PO SCH (11:55)
[2017-10-02] MEDS: ZESTRIL PO SCH (11:55)
[2017-10-02] MEDS: PROTONIX PO SCH (11:55)
[2017-10-02] MEDS: ARIMIDEX (NF) PO SCH (12:26)
[2017-10-02] MEDS: APRESOLINE PO SCH (13:00)
--- NOTE | 2017-10-02 13:29 | Magnetic Resonance Report ---
FINAL REPORT EXAM: MR BRAIN WO/W CON HISTORY: assess cyst on the posterior aspect of the sella PITUITARY W/WO TECHNIQUE: Multiplanar multisequence complete brain MRI Multiplanar multisequence thin section dedicated pituitary MRI IV contrast given PRIORS: Noncontrast brain MRI 09/30/2017 FINDINGS: Brain MRI: Scattered slight mucosal thickening ethmoid sinuses.The included air filled sinuses contain no acute fluid level. Foci of hyperintensity in the cerebral white matter, while nonspecific, are present and usually attributed to chronic ischemic gliosis. It can occur secondary to the normal aging process, hypertension, or arterial sclerotic vascular disease. The differential includes any cause of gliosis as well as demyelination in the appropriate clinical setting. These do not enhance with IV contrast. There is ventricular and sulcal prominence compatible with global symmetric cerebrocortical atrophy. The brain is without hemorrhage or acute infarct. There are no areas of brain restricted diffusion to suggest an acute ischemic infarct. There is no midline shift or brain edema. No abnormal IV contrast enhancement is visualized. Pituitary MRI: There is a smoothly marginated nonspecific simple appearing cyst in the posterior aspect of the sella turcica. Internal signal is homogeneously hypo intense on T1 and T2 hyperintense. This is suggestive of simple or minimally complex fluid. Margins are smooth without ring enhancement. No enhancement with IV contrast within the lesion. No evidence of mural nodule or lesional septation. Approximate lesion dimensions are 6 mm transverse by 6 mm AP x 11 mm sagittal. On coronal images, this cyst appears to be separate from the actual pituitary gland. It may be within the posterior margin, however. There is slight mass effect on the adjacent posterior aspect of the pituitary. T1 hyperintense signal usually visible in the neurohypophysis is not separately identified and may be compressed by the cyst. No definite MRI evidence of lesion in the adenohypophysis. IMPRESSION: Brain:No evidence of acute CVA or brain mass Pituitary:Cystic lesion appears simple in the posterior aspect of the sella turcica. It may be within the posterior aspect of the pituitary and represent a simple pituitary cyst in the neurohypophysis or posterior adenohypophysis. Coronal sequences suggest the lesion is extra pituitary, in which case it may represent a meningeal cyst in the posterior aspect of the sella turcica
--- NOTE | 2017-10-02 14:55 | Discharge Summary ---
Providers - Providers Date of Admission: 09/29/17 14:29 Date of discharge: 10/03/17 Attending physician: NANCY KEARNEY MD 09/29/17 17:04 Physical Therapy Evaluation and Treat [CONS] Routine Comment: Reason For Exam: Frequent fall 09/30/17 11:07 Consult to Physician [CONS] Routine Consulting Provider: ALEJANDRO KAYE Reason For Exam: CHF Place consult to:: Sarah Notified:: ELIZABETH LYMAN Was contact made?: Yes 09/30/17 14:33 Consult to Physician [CONS] Routine Consulting Provider: JACKIE CARLISLE Reason For Exam: frequent falls Place consult to:: Neurology Notified:: yes Phone number called:: [phone] If yes, spoke with:: debby Time called:: 15:57 Comment:: alfreda 09/30/17 14:42 Occupational Therapy Evaluate and Treat [CONS] Routine Comment: Reason For Exam: frequent fall Primary care physician: JACKIE DUMONT Hospitalization Reason for admission: frequent fall, UTI Condition: Stable Pertinent studies: MRI head - Pituitary: Cystic lesion appears simple in the posterior aspect of the sella turcica. It may be within the posterior aspect of the pituitary and represent a simple pituitary cyst in the neurohypophysis or posterior adenohypophysis. Coronal sequences suggest the lesion is extra pituitary, in which case it may be represent and meningeal cyst in the posterior aspect of the sella turcica. Hospital course: 82-year-old -[place] female with past medical history significant for breast cancer status post mastectomy, hypertension, CHF, anxiety, COPD, recurrent pneumonia, dementia is a direct admit is a direct admit from Dr. Dumont's office for suspected pyelonephritis. Patient stated she had recurrent falls for the last 2 weeks, her legs gave up and fall, no dizziness or palpitation before fall. Patient said she had abdominal and flank pain, dysuria , frequency and urgency but denied fever, chills. Patient said she had history of congestive heart failure and is complaining dyspnea, orthopnea, PND and leg swelling. She is also complaining dry cough. Patient has history of long- standing arthritis. Patient was admitted to the floor and CT abdomen and pelvis was done, which was unremarkable, urinalysis was done which was negative but urine culture showed Streptococcus and was treated with IV antibiotics. She was extensively worked up for the cause of recurrent fall and neurology was consulted and input appreciated. Cardiology was consulted and recommended no further cardiac workup because patient had recent outpatient stress test which was negative. Patient was evaluated by physical therapy and recommended subacute rehabilitation which the patient declined. Patient was hemodynamically stable on the time of discharge. Patient's questions and concerns were addressed at the bedside. Patient's appropriate medication prescriptions were given at the time of discharge. Disposition: [id number] HOME UNDER HOME [facility] Time spent for discharge: 31 minutes - Discharge Diagnoses (1) Frequent falls Status: Acute (2) UTI (urinary tract infection) Status: Acute (3) Dementia Status: Acute Qualifiers: Dementia type: Alzheimer's disease Alzheimer's disease onset: unspecified onset Dementia behavioral disturbance: without behavioral disturbance Qualified Code(s): G30.9 - Alzheimer's disease, unspecified; F02.80 - Dementia in other diseases classified elsewhere without behavioral disturbance; F02.80 - Dementia in other diseases classified elsewhere without behavioral disturbance; F02.80 - Dementia in other diseases classified elsewhere without behavioral disturbance Core Measure Documentation - Palliative Care Palliative Care/ Comfort Measures: Not Applicable - Core Measures Any of the following diagnoses?: none Exam - Physical Exam Narrative exam: Not in cardiopulmonary distress. The patient appeared well nourished and normally developed. Vital signs as documented. Head exam is unremarkable. No scleral icterus . Neck is without jugular venous distension, thyromegaly, or carotid bruits. Lungs are clear to auscultation. Cardiac exam reveals regular rate and Rhythm. First and second heart sounds normal. No murmurs, rubs or gallops. Abdominal exam reveals normal bowel sounds, no masses, no organomegaly and no aortic enlargement. Extremities are nonedematous and both femoral and pedal pulses are normal. 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 No focal weakness. - Constitutional Vitals: Temp Pulse Resp BP Pulse Ox 98.5 F 81 19 139/80 99 10/02/17 08:01 10/02/17 14:20 10/02/17 14:20 10/02/17 13:00 10/02/17 08:01 Plan Activity: fall precautions Weight Bearing Status: Full Weight Bearing Diet: low cholesterol Follow up with: JACKIE DUMONT MD [Primary Care Provider] - 7 Days Prescriptions: Levofloxacin [Levaquin] 250 mg PO QDAY #5 tablet
--- NOTE | 2017-10-02 15:05 | Progress Note ---
Assessment and Plan Assessment and plan: Recurrent fall - PT/OT evaluated and recommended home physical therapy - MRI showed chronic ischemic changes, cyst on the posterior aspect of the sella and recommended by radiologist to do MRI with contrast and showed cystic mass behind the sella tursica - Neurology consult appreciated Given the patient was on home torsemide and shortness of breath, cough cardiology was consulted for diastolic CHF - Echo showed normal ejection fraction, diastolic dysfunction - Stress test from technical artist office was negative UTI - Urine culture is positive for strep - Patient is on IV ceftriaxone Anxiety - We'll restart her home dose of alprazolam COPD - On Advair, DuoNeb and oxygen support History of breast cancer DVT prophylaxis - On heparin Disposition -Possible discharge tomorrow - Patient Problems (1) Frequent falls Current Visit: Yes Status: Acute History Interval history: Patient was seen and evaluated this morning, patient complains mild abdominal pain Hospitalist Physical - Physical exam Narrative exam: Not in cardiopulmonary distress. The patient appeared well nourished and normally developed. Vital signs as documented. Head exam is unremarkable. No scleral icterus . Neck is without jugular venous distension, thyromegaly, or carotid bruits. Lungs are clear to auscultation. Cardiac exam reveals regular rate and Rhythm. First and second heart sounds normal. No murmurs, rubs or gallops. Abdominal exam reveals normal bowel sounds, no masses, no organomegaly and no aortic enlargement. Extremities are nonedematous and both femoral and pedal pulses are normal. 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 No focal weakness. - Constitutional Vitals: Temp Pulse Resp BP Pulse Ox 98.5 F 81 19 139/80 99 10/02/17 08:01 10/02/17 14:20 10/02/17 14:20 10/02/17 13:00 10/02/17 08:01 General appearance: Present: no acute distress Results - Labs CBC & Chem 7: 09/30/17 03:55 10/01/17 04:08 Labs: Laboratory Last Values WBC 5.1 K/mm3 (4.5-11.0) 09/30/17 03:55 RBC 3.81 M/mm3 (3.65-5.03) 09/30/17 03:55 Hgb 11.3 gm/dl (10.1-14.3) 09/30/17 03:55 Hct 34.9 % (30.3-42.9) 09/30/17 03:55 MCV 92 fl (79-97) 09/30/17 03:55 MCH 30 pg (28-32) 09/30/17 03:55 MCHC 32 % (30-34) 09/30/17 03:55 RDW 15.9 % (13.2-15.2) H 09/30/17 03:55 Plt Count 166 K/mm3 (140-440) 09/30/17 03:55 Lymph % (Auto) 46.8 % (13.4-35.0) H 09/30/17 03:55 [place] % (Auto) 11.1 % (0.0-7.3) H 09/30/17 03:55 Eos % (Auto) 3.1 % (0.0-4.3) 09/30/17 03:55 Baso % (Auto) 0.9 % (0.0-1.8) 09/30/17 03:55 Lymph # 2.4 K/mm3 (1.2-5.4) 09/30/17 03:55 [place] # 0.6 K/mm3 (0.0-0.8) 09/30/17 03:55 Eos # 0.2 K/mm3 (0.0-0.4) 09/30/17 03:55 Baso # 0.0 K/mm3 (0.0-0.1) 09/30/17 03:55 Seg Neutrophils % 38.1 % (40.0-70.0) L 09/30/17 03:55 Seg Neutrophils # 1.9 K/mm3 (1.8-7.7) 09/30/17 03:55 PT 13.8 Sec. (12.2-14.9) 09/30/17 03:55 INR 1.01 (0.87-1.13) 09/30/17 03:55 Sodium 140 mmol/L (137-145) 10/01/17 04:08 Potassium 3.4 mmol/L (3.6-5.0) L 10/01/17 04:08 Chloride 101.6 mmol/L (98-107) 10/01/17 04:08 Carbon Dioxide 27 mmol/L (22-30) 10/01/17 04:08 Anion Gap 15 mmol/L 10/01/17 04:08 BUN 17 mg/dL (7-17) 10/01/17 04:08 Creatinine 0.7 mg/dL (0.7-1.2) 10/01/17 04:08 Estimated GFR > 60 ml/min 10/01/17 04:08 BUN/Creatinine Ratio 24 % 10/01/17 04:08 Glucose 94 mg/dL (65-100) 10/01/17 04:08 POC Glucose 100 (70-105) 10/02/17 11:57 Lactic Acid 1.40 mmol/L (0.7-2.0) 09/29/17 16:42 Calcium 8.6 mg/dL (8.4-10.2) 10/01/17 04:08 Magnesium 1.90 mg/dL (1.7-2.3) 09/29/17 16:35 Urine Color Yellow (Yellow) 09/29/17 Unknown Urine Turbidity Clear (Clear) 09/29/17 Unknown Urine pH 6.0 (5.0-7.0) 09/29/17 Unknown Ur Specific [place] 1.017 (1.003-1.030) 09/29/17 Unknown Urine Protein <15 mg/dl mg/dL (Negative) 09/29/17 Unknown Urine Glucose (UA) Neg mg/dL (Negative) 09/29/17 Unknown Urine Ketones Neg mg/dL (Negative) 09/29/17 Unknown Urine Blood Neg (Negative) 09/29/17 Unknown Urine Nitrite Neg (Negative) 09/29/17 Unknown Urine Bilirubin Neg (Negative) 09/29/17 Unknown Urine Urobilinogen < 2.0 mg/dL (<2.0) 09/29/17 Unknown Ur Leukocyte Esterase Tr (Negative) 09/29/17 Unknown Urine WBC (Auto) 6.0 /HPF (0.0-6.0) 09/29/17 Unknown Urine RBC (Auto) 2.0 /HPF (0.0-6.0) 09/29/17 Unknown U Epithel Cells (Auto) 1.0 /HPF (0-13.0) 09/29/17 Unknown - Imaging and Cardiology MRI - head: report reviewed (shows cystic mass behind the sella tursica)
--- NOTE | 2017-10-02 16:11 | Progress Note ---
Assessment and Plan - Patient Problems (1) Frequent falls Current Visit: Yes Status: Acute Plan to address problem: Cardiac status is stable, patient had a normal thallium stress test April 2017. Continue neuro workup of her weakness and frequent falls. Subjective Date of service: 10/02/17 Interval history: The patient presented with neurologic symptoms of frequent falls at home. She is currently undergoing neuro workup as we recommended. We found today that she recently had a Persantine thallium stress test as an outpatient, done April 2017. The study was normal. There is no indication for a repeat stress test at this time. Objective Vital Signs Temp Pulse Pulse Resp Resp Resp Resp 10/02/17 14:20 81 19 10/02/17 14:00 70 18 10/02/17 13:33 20 10/02/17 13:00 59 L 10/02/17 11:55 59 L 10/02/17 08:01 98.5 F 59 L 20 10/02/17 06:11 16 10/02/17 05:23 97.6 F 18 10/01/17 22:21 20 10/01/17 22:00 18 10/01/17 21:21 16 10/01/17 21:20 20 20 10/01/17 20:52 83 16 10/01/17 20:42 81 16 10/01/17 19:48 81 10/01/17 19:32 98.2 F 20 BP Pulse Ox 10/02/17 14:20 10/02/17 14:00 10/02/17 13:33 10/02/17 13:00 139/80 10/02/17 11:55 139/80 10/02/17 08:01 139/80 99 10/02/17 06:11 10/02/17 05:23 129/74 10/01/17 22:21 10/01/17 22:00 97 10/01/17 21:21 10/01/17 21:20 10/01/17 20:52 10/01/17 20:42 10/01/17 19:48 97 10/01/17 19:32 150/90 - Physical Examination General: No Apparent Distress HEENT: Positive: PERRL Neck: Positive: neck supple Cardiac: Positive: Reg Rate and Rhythm Lungs: Positive: clear to auscultation Neuro: Positive: Grossly Intact Abdomen: Positive: Soft Skin: Positive: Clear Extremities: Absent: edema
[2017-10-03] MEDS: NORCO 5/325 PO PRN (00:25)
[2017-10-03] MEDS: XANAX PO PRN ×2 (00:25→11:40)
[2017-10-03] MEDS: HEPARIN SUB-Q SCH ×2 (06:01→06:12)
[2017-10-03] MEDS: ULTRAM PO PRN (06:44)
[2017-10-03 07:38] VITALS: BP 125/74
[2017-10-03] MEDS: DUONEB *Not for PRN Use IH SCH ×2 (09:28→15:19)
[2017-10-03] MEDS: PROTONIX PO SCH (10:31)
[2017-10-03] MEDS: ARIMIDEX (NF) PO SCH (10:31)
[2017-10-03] MEDS: NORVASC PO SCH (10:33)
[2017-10-03] MEDS: ZESTRIL PO SCH (10:33)
[2017-10-03] MEDS: APRESOLINE PO SCH (10:33)
[2017-10-03] MEDS: cefTRIAXone 1 GM in NACL 0.9% 20 ML IV SCH (10:41)
[2017-10-06] MEDS ORDERED: VITAMIN D2 PO SCH (10:00)
[2017-10-06] MEDS ORDERED: CHOLECALCIFEROL 50000 UNIT PO SCH (10:00)
== END 2017-10-03 13:35 | disposition home health service (06) | DRG 690 ==
LOC: 2B-ACE 10:46 → UNDOADMIN 10:46 → 2B-ACE 14:29
PROVIDERS: ADMIT Internal Medicine; ATTEND Internal Medicine
PROC: 3E0234Z Introduction of Serum, Toxoid and Vaccine into Muscle, Percutaneous Approach (ICD-10-PCS; principal; 2017-09-30)
DX: N39.0 Urinary tract infection, site not specified (principal); I50.32 Chronic diastolic (congestive) heart failure; J44.9 Chronic obstructive pulmonary disease, unspecified; I11.0 Hypertensive heart disease with heart failure; E78.5 Hyperlipidemia, unspecified; Z66 Do not resuscitate; R29.6 Repeated falls; F03.90 Unspecified dementia, unspecified severity, without behavioral disturbance, psychotic disturbance, mood disturbance, and anxiety; B95.5 Unspecified streptococcus as the cause of diseases classified elsewhere; Z79.899 Other long term (current) drug therapy; Z90.10 Acquired absence of unspecified breast and nipple; Z23 Encounter for immunization
CPT/HCPCS: 36415; 70551; 70553; 71010; 74176; 80048; 81001; 82140; 82533; 82962; 83735; 85025; 85610; 87040; 87086; 90686; 93005; 93010; 93306; 94640; A9577; G8987-GO; G8988-GO; G8989-GO; J0696; J1644; S0170